=== PATIENT | female | born 1970 | race Caucasian/White ===

== ENCOUNTER 2018-01-19 14:53 | Inpatient (IN) | payer BC, OTHER ==
[2018-01-19 15:37] LABS: URINE BLOOD (Dip) POC Negative (NEGATIVE); URINE GLUCOSE (Dip) POC Negative (NEGATIVE); URINE KETONES (Dip) POC Negative (NEGATIVE); URINE LEUKOCYTE EST (Dip) POC Negative (NEGATIVE); URINE NITRITE (Dip) POC Negative (NEGATIVE); URINE TOTAL PROTEIN POC Negative (NEGATIVE)
[2018-01-19] MEDS: ONDANSETRON 4 MG INJ IV (15:46)
[2018-01-19] MEDS: FAMOTIDINE 20 MG INJ IV (15:46)
[2018-01-19] MEDS: HYDROmorphONE 0.5 MG/0.5 ML SYG IV ×3 (15:46→20:42)
[2018-01-19 16:45] LABS: ADD MAN DIFF? NO
[2018-01-19 16:48] LABS: BASOPHIL # 0.1 10^3/ul (0.0-0.1); BASOPHILS % 0.9 % (0.0-2.0); EOSINOPHILS # 0.1 10^3/ul (0.0-0.5); EOSINOPHILS % 2.2 % (0.0-7.0); HEMATOCRIT 38.4 % (37.0-47.0); HEMOGLOBIN 12.7 g/dl (12.0-16.0); LYMPHOCYTES # 1.8 10^3/ul (0.8-2.9); LYMPHOCYTES % 27.4 % (15.0-51.0); MEAN CORPUSCULAR HEMOGLOBIN 29.3 pg (29.0-33.0); MEAN CORPUSCULAR HGB CONC 33.1 g/dl (32.0-37.0); MEAN CORPUSCULAR VOLUME 88.5 fl (82.0-101.0); MEAN PLATELET VOLUME 10.2 fl (7.4-10.4); MONOCYTE # 0.5 10^3/ul (0.3-0.9); MONOCYTES % 7.6 % (0.0-11.0); NEUTROPHILS % 61.6 % (39.0-77.0); PLATELET COUNT 309 10^3/UL (140-415); RED BLOOD COUNT 4.34 10^6/ul (4.20-5.40); RED CELL DISTRIBUTION WIDTH 12.4 % (11.5-14.5)
[2018-01-19 16:48] LABS: WHITE BLOOD COUNT 6.5 10^3/ul (4.8-10.8)
[2018-01-19] MEDS: PIPER-TAZO 3.375 GM IV (PMX) 100 ML IVPB (17:04)
[2018-01-19 17:06] LABS: ALANINE AMINOTRANSFERASE 37 IU/L (13-69); ALBUMIN 4.6 g/dl (3.3-4.9); ALBUMIN/GLOBULIN RATIO 1.48; ALKALINE PHOSPHATASE 88 IU/L (42-121); ANION GAP 19 (8-16); ASPARTATE AMINO TRANSFERASE 31 IU/L (15-46); BILIRUBIN,INDIRECT 0.2 mg/dl (0-1.1); BILIRUBIN,TOTAL 0.2 mg/dl (0.2-1.3); BLOOD UREA NITROGEN 15 mg/dl (7-20); CALCIUM 9.1 mg/dl (8.4-10.2); CARBON DIOXIDE 26 mmol/L (21-31); CHLORIDE 103 mmol/L (97-110); CREATININE 0.89 mg/dl (0.44-1.00); GLUCOSE 92 mg/dl (70-220); LIPASE 49 U/L (23-300); POTASSIUM 4.1 mmol/L (3.5-5.1); SODIUM 144 mmol/L (135-144); TOTAL PROTEIN 7.7 g/dl (6.1-8.1)
[2018-01-19] MEDS: HYDROmorphONE 2 MG/ML SYG IV (17:55)
[2018-01-19] MEDS: SOD CHLORIDE 0.9% 1,000 ML IV (18:58)
[2018-01-19] MEDS ORDERED: NACL 0.9% 3 ML SYG IV (19:30)
[2018-01-19] MEDS ORDERED: LORAZEPAM 2 MG INJ IV (19:30)
[2018-01-19] MEDS ORDERED: BISACODYL (EC) 5 MG TAB PO (19:30)
[2018-01-19] MEDS ORDERED: MAGNESIUM HYDROXIDE 30ML CUP PO (19:30)
[2018-01-19] MEDS: DEXTROSE 5%-0.45% NACL 1,000 ML IV (20:06)
[2018-01-19] MEDS: DIPHENHYDRAMINE 50 MG INJ IV (21:55)
[2018-01-19] MEDS: HEPARIN 5,000 UNIT/0.5 ML VIAL SC (21:58)
[2018-01-20] MEDS: PIPER-TAZO 3.375 GM IV (PMX) 100 ML IVPB ×4 (00:41→18:45)
[2018-01-20] MEDS: HYDROmorphONE 0.5 MG/0.5 ML SYG IV ×3 (00:43→09:06)
[2018-01-20] MEDS ORDERED: DIPHENHYDRAMINE 50 MG INJ (00:56)
[2018-01-20] MEDS: DIPHENHYDRAMINE 50 MG INJ IV ×4 (01:05→21:09)
[2018-01-20] MEDS: LEVOTHYROXINE 25 MCG TAB PO (05:54)
[2018-01-20] MEDS: HEPARIN 5,000 UNIT/0.5 ML VIAL SC ×3 (05:58→21:42)
[2018-01-20] MEDS: PANTOPRAZOLE 40 MG INJ IV (05:58)
[2018-01-20] MEDS: DEXTROSE 5%-0.45% NACL 1,000 ML IV ×3 (05:58→21:18)
[2018-01-20 06:21] LABS: ADD MAN DIFF? NO
[2018-01-20 06:26] LABS: BASOPHILS % 0.6 % (0.0-2.0); EOSINOPHILS # 0.2 10^3/ul (0.0-0.5); EOSINOPHILS % 2.4 % (0.0-7.0); HEMATOCRIT 33.6 % (37.0-47.0); HEMOGLOBIN 11.2 g/dl (12.0-16.0); LYMPHOCYTES # 1.8 10^3/ul (0.8-2.9); LYMPHOCYTES % 26.7 % (15.0-51.0); MEAN CORPUSCULAR HEMOGLOBIN 29.9 pg (29.0-33.0); MEAN CORPUSCULAR HGB CONC 33.3 g/dl (32.0-37.0); MEAN CORPUSCULAR VOLUME 89.6 fl (82.0-101.0); MEAN PLATELET VOLUME 10.3 fl (7.4-10.4); MONOCYTE # 0.6 10^3/ul (0.3-0.9); MONOCYTES % 9.6 % (0.0-11.0); NEUTROPHILS % 60.5 % (39.0-77.0); PLATELET COUNT 261 10^3/UL (140-415); RED BLOOD COUNT 3.75 10^6/ul (4.20-5.40); RED CELL DISTRIBUTION WIDTH 12.7 % (11.5-14.5)
[2018-01-20 06:26] LABS: WHITE BLOOD COUNT 6.6 10^3/ul (4.8-10.8)
[2018-01-20 06:56] LABS: ALBUMIN/GLOBULIN RATIO 1.35; ANION GAP 15 (8-16)
[2018-01-20] MEDS ORDERED: BUPIVACAINE 0.25%/EPI (MDV) 50 ML VIAL INJ (07:00)
[2018-01-20 07:19] LABS: ALANINE AMINOTRANSFERASE 49 IU/L (13-69); ALBUMIN 3.8 g/dl (3.3-4.9); ALKALINE PHOSPHATASE 68 IU/L (42-121); ASPARTATE AMINO TRANSFERASE 42 IU/L (15-46); BILIRUBIN,INDIRECT 0.6 mg/dl (0-1.1); BILIRUBIN,TOTAL 0.6 mg/dl (0.2-1.3); BLOOD UREA NITROGEN 14 mg/dl (7-20); CALCIUM 8.3 mg/dl (8.4-10.2); CARBON DIOXIDE 28 mmol/L (21-31); CHLORIDE 105 mmol/L (97-110); CREATININE 0.92 mg/dl (0.44-1.00); GLUCOSE 91 mg/dl (70-220); POTASSIUM 4.2 mmol/L (3.5-5.1); SODIUM 144 mmol/L (135-144); TOTAL PROTEIN 6.6 g/dl (6.1-8.1)
[2018-01-20] MEDS: ACETAMINOPHEN 1000MG/100ML IV 100 ML IVPB (13:36)
[2018-01-20] MEDS ORDERED: LIDOCAINE 1%/EPI 30 ML INJ (15:20)
[2018-01-20] MEDS ORDERED: FENTAnyl 50 MCG/ML VIAL (17:52)
[2018-01-20] MEDS ORDERED: LIDOCAINE 100 MG SYRINGE (18:11)
[2018-01-20] MEDS ORDERED: SUGAMMADEX SODIUM 200 MG/2 ML VIAL IV (18:11)
[2018-01-20] MEDS ORDERED: ROPIVACAINE 0.5 % 30 ML VIAL (18:11)
[2018-01-20] MEDS ORDERED: ROCURONIUM 50 MG INJ (18:11)
[2018-01-20] MEDS ORDERED: PROPOFOL 20 ML (18:11)
[2018-01-20] MEDS ORDERED: CEFAZOLIN 1 GM INJ (18:11)
[2018-01-20] MEDS ORDERED: SUCCINYLCHOLINE CHLORIDE 100 MG/5 ML SYG IV (18:11)
[2018-01-20] MEDS ORDERED: FENTAnyl 50 MCG/ML VIAL IV (18:30)
[2018-01-20] MEDS ORDERED: METOCLOPRAMIDE 10 MG INJ IV (18:30)
[2018-01-20] MEDS ORDERED: HYDROmorphONE (0.2 MG/ML) 10ML SYG IV ×2 (18:30)
[2018-01-20] MEDS: BUPIVACAINE 0.25% (MPF) 30 ML INJ (18:45)
[2018-01-20] MEDS: LIDOCAINE 1% (MPF) 30 ML INJ (18:46)
[2018-01-20] MEDS: MEPERIDINE 25 MG INJ IV (19:04)
[2018-01-20] MEDS: ONDANSETRON 4 MG INJ IV (19:04)
[2018-01-20] MEDS: HYDROmorphONE (0.2 MG/ML) 10ML SYG IV (19:05)
[2018-01-20] MEDS: FENTAnyl 50 MCG/ML VIAL IV (19:18)
[2018-01-20 19:59] LABS: INR 0.95; PROTIME 12.8 Sec (11.9-14.9)
[2018-01-20] MEDS: QUETIAPINE 100 MG TAB PO (21:16)
[2018-01-20] MEDS: HYDROCODONE/APAP (5/325) TAB PO (21:23)
[2018-01-20] MEDS: morphine 2 MG INJ IV (23:07)
[2018-01-21] MEDS: PIPER-TAZO 3.375 GM IV (PMX) 100 ML IVPB ×3 (00:10→11:51)
[2018-01-21] MEDS: ACETAMINOPHEN 325 MG TAB PO (00:20)
[2018-01-21] MEDS: HYDROCODONE/APAP (5/325) TAB PO ×2 (01:46→06:14)
[2018-01-21] MEDS: LEVALBUTEROL (NEB) 0.63 MG/3 ML AMP HHN (02:03)
[2018-01-21] MEDS: IPRATROPIUM (NEB) 0.5 MG/2.5 ML AMP HHN (02:03)
[2018-01-21] MEDS: morphine 2 MG INJ IV (05:44)
[2018-01-21] MEDS: PANTOPRAZOLE 40 MG INJ IV (05:58)
[2018-01-21] MEDS ORDERED: morphine 2 MG INJ IV (06:00)
[2018-01-21] MEDS: HEPARIN 5,000 UNIT/0.5 ML VIAL SC ×3 (06:08→21:38)
[2018-01-21] MEDS: LEVOTHYROXINE 25 MCG TAB PO (06:14)
[2018-01-21 06:32] LABS: ADD MAN DIFF? NO
[2018-01-21 06:47] LABS: WHITE BLOOD COUNT 7.4 10^3/ul (4.8-10.8)
[2018-01-21 06:47] LABS: BASOPHILS % 0.4 % (0.0-2.0); EOSINOPHILS # 0.1 10^3/ul (0.0-0.5); EOSINOPHILS % 0.9 % (0.0-7.0); HEMATOCRIT 32.1 % (37.0-47.0); HEMOGLOBIN 10.4 g/dl (12.0-16.0); LYMPHOCYTES # 1.7 10^3/ul (0.8-2.9); LYMPHOCYTES % 22.5 % (15.0-51.0); MEAN CORPUSCULAR HEMOGLOBIN 29.1 pg (29.0-33.0); MEAN CORPUSCULAR HGB CONC 32.4 g/dl (32.0-37.0); MEAN CORPUSCULAR VOLUME 89.9 fl (82.0-101.0); MEAN PLATELET VOLUME 10.5 fl (7.4-10.4); MONOCYTE # 0.5 10^3/ul (0.3-0.9); MONOCYTES % 6.5 % (0.0-11.0); NEUTROPHIL # 5.2 10^3/ul (1.6-7.5); NEUTROPHILS % 69.4 % (39.0-77.0); PLATELET COUNT 229 10^3/UL (140-415); RED BLOOD COUNT 3.57 10^6/ul (4.20-5.40); RED CELL DISTRIBUTION WIDTH 12.2 % (11.5-14.5)
[2018-01-21 07:04] LABS: ANION GAP 15 (8-16); BLOOD UREA NITROGEN 9 mg/dl (7-20); CALCIUM 8.3 mg/dl (8.4-10.2); CARBON DIOXIDE 25 mmol/L (21-31); CHLORIDE 103 mmol/L (97-110); CREATININE 0.79 mg/dl (0.44-1.00); GLUCOSE 76 mg/dl (70-220); MAGNESIUM 1.8 mg/dl (1.7-2.5); PHOSPHORUS 3.9 mg/dl (2.5-4.9); POTASSIUM 4.2 mmol/L (3.5-5.1); SODIUM 139 mmol/L (135-144)
[2018-01-21] MEDS: ONDANSETRON 4 MG INJ IV ×3 (08:18→21:28)
[2018-01-21] MEDS: HYDROmorphONE 0.5 MG/0.5 ML SYG IV (08:18)
[2018-01-21] MEDS: morphine 10 MG INJ IV ×4 (09:52→21:29)
[2018-01-21] MEDS: OXYCODONE/ACETAMINOPHEN (10/325) TAB PO ×3 (09:53→17:59)
[2018-01-21] MEDS: SOD CHLORIDE 0.9% 100 ML (10:21)
[2018-01-21] MEDS: IOHEXOL 300MG/ML 150 ML BTL (10:22)
[2018-01-21] MEDS: DIPHENHYDRAMINE 50 MG INJ IV ×3 (11:08→21:30)
[2018-01-21] MEDS ORDERED: POLYETHYLENE GLYCOL 17 GM PACKET PO (15:30)
[2018-01-21] MEDS: DOCUSATE SODIUM 100 MG CAP PO (21:30)
[2018-01-21] MEDS: QUETIAPINE 100 MG TAB PO (21:30)
[2018-01-22] MEDS: LEVOTHYROXINE 25 MCG TAB PO (05:52)
[2018-01-22] MEDS: HEPARIN 5,000 UNIT/0.5 ML VIAL SC ×3 (05:52→20:01)
[2018-01-22 07:43] LABS: ADD MAN DIFF? NO
[2018-01-22 07:56] LABS: BASOPHILS % 0.1 % (0.0-2.0); EOSINOPHILS % 0.1 % (0.0-7.0); HEMOGLOBIN 10.5 g/dl (12.0-16.0); LYMPHOCYTES # 1.9 10^3/ul (0.8-2.9); LYMPHOCYTES % 26.6 % (15.0-51.0); MEAN CORPUSCULAR HEMOGLOBIN 29.3 pg (29.0-33.0); MEAN CORPUSCULAR HGB CONC 32.8 g/dl (32.0-37.0); MEAN CORPUSCULAR VOLUME 89.4 fl (82.0-101.0); MEAN PLATELET VOLUME 10.3 fl (7.4-10.4); MONOCYTE # 0.8 10^3/ul (0.3-0.9); MONOCYTES % 10.6 % (0.0-11.0); NEUTROPHIL # 4.5 10^3/ul (1.6-7.5); NEUTROPHILS % 62.2 % (39.0-77.0); PLATELET COUNT 241 10^3/UL (140-415); RED BLOOD COUNT 3.58 10^6/ul (4.20-5.40); RED CELL DISTRIBUTION WIDTH 12.1 % (11.5-14.5)
[2018-01-22 07:56] LABS: WHITE BLOOD COUNT 7.3 10^3/ul (4.8-10.8)
[2018-01-22] MEDS: ONDANSETRON 4 MG INJ IV (08:14)
[2018-01-22 08:18] LABS: ANION GAP 17 (8-16); BLOOD UREA NITROGEN 24 mg/dl (7-20); CALCIUM 8.4 mg/dl (8.4-10.2); CARBON DIOXIDE 24 mmol/L (21-31); CHLORIDE 98 mmol/L (97-110); CREATININE 2.08 mg/dl (0.44-1.00); GLUCOSE 111 mg/dl (70-220); MAGNESIUM 1.8 mg/dl (1.7-2.5); PHOSPHORUS 6.6 mg/dl (2.5-4.9); POTASSIUM 4.7 mmol/L (3.5-5.1); SODIUM 134 mmol/L (135-144)
[2018-01-22] MEDS: DOCUSATE SODIUM 100 MG CAP PO ×2 (09:19→20:00)
[2018-01-22] MEDS: morphine 10 MG INJ IV ×2 (09:24→14:08)
[2018-01-22] MEDS: OXYCODONE/ACETAMINOPHEN (10/325) TAB PO ×2 (10:27→18:14)
[2018-01-22] MEDS: HYDROmorphONE 0.5 MG/0.5 ML SYG IV (12:54)
[2018-01-22] MEDS ORDERED: HYDROmorphONE 0.5 MG/0.5 ML SYG IV (14:00)
[2018-01-22] MEDS: SOD CHLORIDE 0.9% 1,000 ML IV ×2 (20:00→22:00)
[2018-01-22] MEDS: QUETIAPINE 100 MG TAB PO (20:00)
[2018-01-23 04:25] LABS: ADD UMIC YES; UR ASCORBIC ACID NEGATIVE (NEGATIVE); UR BACTERIA FEW /HPF (NONE SEEN); UR BILIRUBIN (Dip) NEGATIVE (NEGATIVE); UR BLOOD (Dip) 3+ mg/dL (NEGATIVE); UR CLARITY SLIGHTLY CLOUDY (CLEAR); UR COLOR RED (YELLOW); UR GLUCOSE (Dip) 1+ mg/dL (NEGATIVE); UR KETONES (Dip) TRACE mg/dL (NEGATIVE); UR LEUKOCYTE ESTERASE (Dip) 1+ Leu/ul (NEGATIVE); UR NITRITE (Dip) NEGATIVE (NEGATIVE); UR RBC > 182 /HPF (0-5); UR SPECIFIC GRAVITY (Dip) 1.006 (1.003-1.030); UR SQUAMOUS EPITHELIAL CELL MANY /HPF (FEW); UR TOTAL PROTEIN (Dip) 2+ mg/dl (NEGATIVE); UR UROBILINOGEN (Dip) NEGATIVE (NEGATIVE); UR WBC 72 /HPF (0-5)
[2018-01-23 04:35] LABS: SODIUM,URINE RANDOM < 13 mmol/L (30-90)
[2018-01-23 04:35] LABS: CREATININE,URINE RANDOM 41.07 mg/dl (20-320)
[2018-01-23 05:46] LABS: ADD MAN DIFF? NO
[2018-01-23 05:52] LABS: BASOPHILS % 0.3 % (0.0-2.0); EOSINOPHILS # 0.1 10^3/ul (0.0-0.5); HEMOGLOBIN 9.5 g/dl (12.0-16.0); LYMPHOCYTES # 1.3 10^3/ul (0.8-2.9); LYMPHOCYTES % 22.2 % (15.0-51.0); MEAN CORPUSCULAR HEMOGLOBIN 29.1 pg (29.0-33.0); MEAN CORPUSCULAR HGB CONC 33.9 g/dl (32.0-37.0); MEAN CORPUSCULAR VOLUME 85.6 fl (82.0-101.0); MEAN PLATELET VOLUME 10.6 fl (7.4-10.4); MONOCYTE # 0.5 10^3/ul (0.3-0.9); MONOCYTES % 8.7 % (0.0-11.0); NEUTROPHILS % 67.5 % (39.0-77.0); PLATELET COUNT 189 10^3/UL (140-415); RED BLOOD COUNT 3.27 10^6/ul (4.20-5.40); RED CELL DISTRIBUTION WIDTH 12.1 % (11.5-14.5)
[2018-01-23 06:20] LABS: ANION GAP 12 (8-16); BLOOD UREA NITROGEN 21 mg/dl (7-20); CALCIUM 7.9 mg/dl (8.4-10.2); CARBON DIOXIDE 27 mmol/L (21-31); CHLORIDE 101 mmol/L (97-110); CREATININE 1.03 mg/dl (0.44-1.00); GLUCOSE 107 mg/dl (70-220); MAGNESIUM 1.8 mg/dl (1.7-2.5); PHOSPHORUS 2.2 mg/dl (2.5-4.9); POTASSIUM 3.9 mmol/L (3.5-5.1); SODIUM 136 mmol/L (135-144)
[2018-01-23] MEDS: LEVOTHYROXINE 25 MCG TAB PO (06:26)
[2018-01-23] MEDS: HEPARIN 5,000 UNIT/0.5 ML VIAL SC (06:27)
[2018-01-23] MEDS: SOD CHLORIDE 0.9% 1,000 ML IV ×2 (06:33→08:00)
[2018-01-23] MEDS: OXYCODONE/ACETAMINOPHEN (10/325) TAB PO (06:46)
[2018-01-23] MEDS: DOCUSATE SODIUM 100 MG CAP PO (09:05)
[2018-01-23] MEDS: NEUTRA-PHOS 250 MG PACKET PO (10:02)
[2018-01-26 15:51] LABS: CREATININE, RANDOM URINE 47 mg/dL (20-320); MICROALBUMIN 35.4 mg/dL; MICROALBUMIN/CREATININE RATIO 753 (<30)
== END 2018-01-23 13:10 | disposition home or self-care (01) | DRG 418 ==
LOC: FTE 14:53 → PP2 18:31
PROVIDERS: Internal Medicine
PROC: 0FT44ZZ Resection of Gallbladder, Percutaneous Endoscopic Approach (ICD-10-PCS; principal; 2018-01-20 17:00)
PROC: 0FB04ZX Excision of Liver, Percutaneous Endoscopic Approach, Diagnostic (ICD-10-PCS; 2018-01-20 17:00)
PROC: 0WQF4ZZ Repair Abdominal Wall, Percutaneous Endoscopic Approach (ICD-10-PCS; 2018-01-20 17:00)
DX: K80.12 Calculus of gallbladder with acute and chronic cholecystitis without obstruction (principal); K43.6 Other and unspecified ventral hernia with obstruction, without gangrene; N17.9 Acute kidney failure, unspecified; E87.1 Hypo-osmolality and hyponatremia; E03.9 Hypothyroidism, unspecified; F17.290 Nicotine dependence, other tobacco product, uncomplicated; G47.00 Insomnia, unspecified; D64.9 Anemia, unspecified
CPT/HCPCS: 71046; 74176; 74177; 76705; 76775; 80048; 80053; 81001; 81003; 82043; 83690; 83735; 84100; 84155; 84300; 85025; 85610; 94664; 96374; 96375; 96376; 99285-25